=== PATIENT | male | born 1960 | race Caucasian/White ===

== ENCOUNTER 2016-11-19 10:11 | Inpatient (IN) | payer MEDICARE, MEDICAID ==
[~2016-11-19] VITALS: Ht 170.2 cm; Wt 55.4 kg
[2016-11-19] MEDS ORDERED: ONDANSETRON HCL 4MG/2ML VIAL IV STA (11:14)
[2016-11-19] MEDS ORDERED: CLONIDINE 0.2MG TABLET PO ONE (11:30)
[2016-11-19 11:37] LABS: HEMATOCRIT. 33.4 % (42.0-52.0); HEMOGLOBIN. 10.9 g/dL (14.0-18.0); MEAN CORPUSCULAR HEMOGLOBIN 28.1 pg (28.0-32.0); MEAN CORPUSCULAR VOLUME 86.2 fL (80.0-94.0); MEAN PLATELET VOLUME 8.3 fl (7.4-10.4); PLATELET 206 x1000/uL (130-400); RED BLOOD CELL COUNT 3.88 mill/uL (4.7-6.1); RED CELL DISTRIBUTION WIDTH 15.8 % (11.6-14.6)
[2016-11-19 11:50] LABS: CARBON DIOXIDE 30 mEq/L (21-32); CHLORIDE 92 mEq/L (98-107)
[2016-11-19 12:30] LABS: PLATELET ESTIMATE NORMAL
[2016-11-19] MEDS ORDERED: CEFTRIAXONE 1 G PREMIX 50 ML IV ONE (14:15)
[2016-11-19] MEDS ORDERED: METRONIDAZOLE 500 MG PREMIX 100 ML IV ONE (14:15)
[2016-11-19] MEDS ORDERED: ONDANSETRON HCL 4MG/2ML VIAL IV PRN (20:00)
[2016-11-19] MEDS ORDERED: DEXTROSE 50% WATER 50ML SYRINGE IV PRN (20:00)
[2016-11-19] MEDS ORDERED: ACETAMINOPHEN 325MG TABLET PO PRN (20:00)
[2016-11-19] MEDS: CLONIDINE 0.1MG TABLET PO PRN (20:40)
[2016-11-19] MEDS: BLOOD SUGAR DIAGNOSTIC STRIP TEST SCH (20:41)
[2016-11-19] MEDS: INSULIN LISPRO 100 UNITS/ML SUBCUT SCH (20:43)
[2016-11-19] MEDS: CIPROFLOXACIN 0.3% OPHTH SOLN 2.5ML BOTHEYE SCH (20:50)
[2016-11-19] MEDS: PREDNISOLONE ACETATE 1% OPHTH DROPS 1ML BOTHEYE SCH (20:51)
[2016-11-19] MEDS: NEO/POLYMYX B SULF/DEXAMETH OPHTH OINT 3.5GM RIGHTEYE SCH (20:51)
[2016-11-20 06:28] LABS: CARBON DIOXIDE 35 mEq/L (21-32); CHLORIDE 95 mEq/L (98-107)
[2016-11-20 06:30] LABS: BASOPHILS % 0.8 % (0.0-2.0); EOSINOPHILS % 1.4 % (0.0-5.0); HEMATOCRIT. 32.7 % (42.0-52.0); HEMOGLOBIN. 10.7 g/dL (14.0-18.0); LYMPHOCYTES % 11.2 % (20.0-50.0); MEAN CORPUSCULAR HEMOGLOBIN 28.3 pg (28.0-32.0); MEAN CORPUSCULAR VOLUME 86.2 fL (80.0-94.0); MEAN PLATELET VOLUME 8.3 fl (7.4-10.4); MONOCYTES % 9.7 % (2.0-8.0); NEUTROPHILS % 76.9 % (40.0-76.0); PLATELET 170 x1000/uL (130-400); RED BLOOD CELL COUNT 3.79 mill/uL (4.7-6.1)
[2016-11-20] MEDS: BLOOD SUGAR DIAGNOSTIC STRIP TEST SCH ×4 (07:40→20:57)
[2016-11-20] MEDS: INSULIN LISPRO 100 UNITS/ML SUBCUT SCH ×4 (08:10→21:00)
[2016-11-20] MEDS: CLONIDINE 0.1MG TABLET PO PRN ×2 (09:19→17:42)
[2016-11-20] MEDS: ENOXAPARIN 30MG/0.3ML SYR SUBCUT SCH (09:20)
[2016-11-20] MEDS: NEO/POLYMYX B SULF/DEXAMETH OPHTH OINT 3.5GM RIGHTEYE SCH ×4 (10:20→20:56)
[2016-11-20] MEDS: CIPROFLOXACIN 0.3% OPHTH SOLN 2.5ML BOTHEYE SCH ×4 (10:20→20:57)
[2016-11-20] MEDS: PREDNISOLONE ACETATE 1% OPHTH DROPS 1ML BOTHEYE SCH ×4 (10:20→20:57)
[2016-11-20] MEDS: ENALAPRIL 10MG TABLET PO SCH ×2 (13:21→21:05)
[2016-11-20] MEDS: NIFEDIPINE XL 90MG TAB PO SCH (15:47)
[2016-11-20] MEDS ORDERED: NEBI5TAB3 PO ×2 (18:08→18:48)
[2016-11-20] MEDS ORDERED: REN800 PO (18:48)
[2016-11-20] MEDS ORDERED: CINA30 PO (18:48)
[2016-11-20] MEDS ORDERED: CIPROFLOXIN (18:48)
[2016-11-20] MEDS ORDERED: INSU3INS8 SQ (18:48)
[2016-11-20] MEDS ORDERED: LOPE2TAB26 PO (18:48)
[2016-11-20] MEDS ORDERED: NEOMYCIN OP (18:48)
[2016-11-20] MEDS ORDERED: INSU3INS6 SUBCUT (18:48)
[2016-11-20] MEDS ORDERED: HYDR-4134 PO (18:48)
[2016-11-20] MEDS ORDERED: PRED1DRO BOTHEYE (18:48)
[2016-11-20] MEDS ORDERED: METH50TA5 PO (18:48)
[2016-11-20] MEDS ORDERED: CIPROFLAXACIN RIGHTEYE (18:48)
[2016-11-20] MEDS ORDERED: BRIM15DR2 EACHEYE (18:48)
[2016-11-21 06:09] LABS: BASOPHILS % 0.8 % (0.0-2.0); EOSINOPHILS % 1.9 % (0.0-5.0); HEMATOCRIT. 33.8 % (42.0-52.0); HEMOGLOBIN. 10.8 g/dL (14.0-18.0); LYMPHOCYTES % 10.4 % (20.0-50.0); MEAN CORPUSCULAR HEMOGLOBIN 28.2 pg (28.0-32.0); MEAN PLATELET VOLUME 7.9 fl (7.4-10.4); NEUTROPHILS % 77.9 % (40.0-76.0); PLATELET 171 x1000/uL (130-400); RED BLOOD CELL COUNT 3.84 mill/uL (4.7-6.1); RED CELL DISTRIBUTION WIDTH 16.5 % (11.6-14.6)
[2016-11-21] MEDS: BLOOD SUGAR DIAGNOSTIC STRIP TEST SCH ×4 (07:40→20:32)
[2016-11-21] MEDS: INSULIN LISPRO 100 UNITS/ML SUBCUT SCH ×4 (08:10→20:54)
[2016-11-21] MEDS: CIPROFLOXACIN 0.3% OPHTH SOLN 2.5ML BOTHEYE SCH ×4 (09:28→20:39)
[2016-11-21] MEDS: NIFEDIPINE XL 90MG TAB PO SCH (09:28)
[2016-11-21] MEDS: ENOXAPARIN 30MG/0.3ML SYR SUBCUT SCH (09:28)
[2016-11-21] MEDS: NEO/POLYMYX B SULF/DEXAMETH OPHTH OINT 3.5GM RIGHTEYE SCH ×4 (09:29→20:42)
[2016-11-21] MEDS: PREDNISOLONE ACETATE 1% OPHTH DROPS 1ML BOTHEYE SCH ×4 (09:29→20:41)
[2016-11-21] MEDS: ENALAPRIL 10MG TABLET PO SCH ×2 (09:31→20:31)
[2016-11-22 06:04] LABS: BASOPHILS % 0.7 % (0.0-2.0); HEMATOCRIT. 32.3 % (42.0-52.0); HEMOGLOBIN. 10.5 g/dL (14.0-18.0); LYMPHOCYTES % 9.3 % (20.0-50.0); MEAN CORPUSCULAR HEMOGLOBIN 28.6 pg (28.0-32.0); MEAN CORPUSCULAR VOLUME 87.3 fL (80.0-94.0); MEAN PLATELET VOLUME 8.2 fl (7.4-10.4); MONOCYTES % 10.1 % (2.0-8.0); NEUTROPHILS % 77.9 % (40.0-76.0); PLATELET 160 x1000/uL (130-400); RED BLOOD CELL COUNT 3.69 mill/uL (4.7-6.1); RED CELL DISTRIBUTION WIDTH 16.3 % (11.6-14.6)
[2016-11-22] MEDS: BLOOD SUGAR DIAGNOSTIC STRIP TEST SCH ×2 (06:14→13:18)
[2016-11-22] MEDS: INSULIN LISPRO 100 UNITS/ML SUBCUT SCH ×2 (06:14→13:34)
[2016-11-22] MEDS: PREDNISOLONE ACETATE 1% OPHTH DROPS 1ML BOTHEYE SCH ×2 (09:34→13:32)
[2016-11-22] MEDS: CIPROFLOXACIN 0.3% OPHTH SOLN 2.5ML BOTHEYE SCH ×2 (09:35→13:32)
[2016-11-22] MEDS: NEO/POLYMYX B SULF/DEXAMETH OPHTH OINT 3.5GM RIGHTEYE SCH ×2 (09:35→13:32)
[2016-11-22] MEDS: ENALAPRIL 10MG TABLET PO SCH (09:36)
[2016-11-22] MEDS: ENOXAPARIN 30MG/0.3ML SYR SUBCUT SCH (09:36)
[2016-11-22] MEDS: NIFEDIPINE XL 90MG TAB PO SCH (09:37)
[2016-11-22] MEDS ORDERED: FOLIC ACID/VITAMIN B COMP W-C TABLET PO SCH (11:15)
[2016-11-22 16:00] VITALS: BP 110/66
== END 2016-11-22 17:01 | disposition home or self-care (01) | DRG 391 ==
LOC: ER 10:12 → 7WST 14:31 → ENRESERV 14:41 → CANBEDREQ 16:58 → 7WST 11-20 02:47
PROVIDERS: ADMIT Internal Medicine Nephrology; ATTEND Internal Medicine Nephrology
PROC: 5A1D00Z (ICD-10-PCS; principal; 2016-11-20)
DX: A08.4 Viral intestinal infection, unspecified (principal); N18.6 End stage renal disease; I12.0 Hypertensive chronic kidney disease with stage 5 chronic kidney disease or end stage renal disease; E44.1 Mild protein-calorie malnutrition; D63.8 Anemia in other chronic diseases classified elsewhere; E11.22 Type 2 diabetes mellitus with diabetic chronic kidney disease; E11.319 Type 2 diabetes mellitus with unspecified diabetic retinopathy without macular edema; H26.9 Unspecified cataract; Z79.4 Long term (current) use of insulin; Z87.891 Personal history of nicotine dependence; Z99.2 Dependence on renal dialysis; Z94.7 Corneal transplant status
CPT/HCPCS: 36415; 74000; 74176; 80048; 80051; 80053; 80076; 82962; 83690; 85025; 93005; 96365; 96366; 96367; 96375; 99285; J0696; J1650; J1815; J2405; J3490